=== PATIENT | male | born 1990 | race Two or more races ===

== ENCOUNTER 2017-02-04 04:40 | Emergency (ER) | payer OTHER ==
[~2017-02-04] VITALS: Ht 167.6 cm; Wt 72.6 kg
--- NOTE | 2017-02-04 04:52 | Emergency Room Report ---
History of Present Illness General Chief Complaint: Overdose Source: Patient Present Illness HPI This is a 26-year-old male with no significant past medical history. He presents with accounts payable accountant overdose. He was at [facility] and was using heroine. He said he used usual. Someone called 911. He woke up and EMS gave him Narcan. Patient denies suicidal thoughts or homicidal thought. No nausea no vomiting. No shakiness. No other complaint. Never overdosed before. Allergies: Coded Allergies: AMOXICILLIN (Verified Allergy, Unknown, 02/04/17) PENICILLINS (Verified Allergy, Unknown, 02/04/17) SULFA (SULFONAMIDE ANTIBIOTICS) (Verified Allergy, Unknown, 02/04/17) Patient History Past Medical History: see triage record, old chart reviewed Past Surgical History: other Pertinent Family History: none Social History: Reports: smoking, drug use Immunizations: other Reviewed Nursing Documentation: PMH: Agreed, PSxH: Agreed Nursing Documentation-PMH Past Medical History: No Stated History Review of Systems Eye: Denies: eye pain, blurred vision ENT: Denies: ear pain, nose congestion, throat swelling Respiratory: Denies: cough, shortness of breath Cardiovascular: Denies: chest pain, palpitations Gastrointestinal: Denies: abdominal pain, diarrhea, nausea, vomiting Musculoskeletal: Denies: back pain, joint pain Skin: Denies: rash Neurological: Denies: headache, numbness Endocrine: Denies: increased thirst, increased urine Hematologic/Lymphatic: Denies: easy bruising All Other Systems: negative except mentioned in HPI Physical Exam Vital Signs Date Time Temp Pulse Resp B/P (MAP) Pulse Ox O2 Delivery O2 Flow Rate FiO2 02/04/17 04:41 98.1 109 22 128/85 96 Room Air vitals normal Sp02 EP Interpretation: reviewed, normal General Appearance: well appearing, no apparent distress, alert Head: normocephalic, atraumatic Eyes: bilateral eye PERRL, bilateral eye EOMI ENT: hearing grossly normal, normal pharynx Neck: full range of motion, supple, no meningismus Respiratory: chest non-tender, lungs clear, normal breath sounds Cardiovascular #1: regular rate, rhythm, no murmur Gastrointestinal: normal bowel sounds, non tender, no mass, no organomegaly, no bruit, non-distended Musculoskeletal: back normal, gait/station normal, normal range of motion Psychiatric: mood/affect normal Skin: warm/dry Medical Decision Making Diagnostic Impression: Primary Impression: Heroin overdose Qualified Codes: T40.1X1A - Poisoning by heroin, accidental (unintentional), initial encounter ER Course Patient presents with accident opioid overdose. Not suicidal or homicidal. We' ll watch him for an hour. If he is still awake, we'll discharge home. Last Vital Signs Date Time Temp Pulse Resp B/P (MAP) Pulse Ox O2 Delivery O2 Flow Rate FiO2 02/04/17 04:45 109 22 Room Air 02/04/17 04:41 98.1 128/85 96 Status: improved Disposition: HOME, SELF-CARE Condition: Stable Patient Instructions: OVERDOSE, Accidental (Adult) Additional Instructions: Abstain from drugs and alcohol. Followup your Dr. in 2-3 days. Return if worse. GUSTABO VARGAS M.D. Feb 04, 2017 04:52
[2017-02-04 05:57] VITALS: BP 128/85
== END 2017-02-04 05:58 | disposition home or self-care (01) ==
LOC: EDBD 04:40 → EMR 04:57
DX: T40.1X1A Poisoning by heroin, accidental (unintentional), initial encounter (principal); Z88.0 Allergy status to penicillin; Z88.2 Allergy status to sulfonamides
CPT/HCPCS: 99284